=== PATIENT | female | born 2000 | race African-American/Black ===

== ENCOUNTER 2022-01-03 14:13 | Emergency (ER) | payer SELFPAY ==
[~2022-01-03] VITALS: Ht 160 cm; Wt 54.0 kg
--- NOTE | 2022-01-03 15:15 | ED GU-Female ---
General Chief Complaint: - Reproductive Stated Complaint: STD CHECK Source: patient Exam Limitations: no limitations History of Present Illness Date Seen by Provider: Jan 03, 2022 Time Seen by Provider: 15:08 Initial Comments Is a 21-year-old female who presented to the ER via POV with concerns for STI. States she is with a male partner who is positive for Trich and she would like to have STI testing. Physical Exam Vital Signs Capillary Refill : Height, Weight, BMI Height: '" Weight: lbs. oz. kg; BMI Method: Progress/Results/Core Measures Suspected Sepsis SIRS Temperature: Pulse: Respiratory Rate: Blood Pressure / Mean: Results/Orders Lab Results Laboratory Tests Test 01/03/22 15:03 Range/Units Urine Color YELLOW Urine Clarity CLEAR Urine pH 6.0 5-9 Urine Specific Nucla >=1.030 1.016-1.022 Urine Protein TRACE H NEGATIVE Urine Glucose (UA) NEGATIVE NEGATIVE Urine Ketones NEGATIVE NEGATIVE Urine Nitrite NEGATIVE NEGATIVE Urine Bilirubin NEGATIVE NEGATIVE Urine Urobilinogen 1.0 < = 1.0 MG/DL Urine Leukocyte Esterase 3+ H NEGATIVE Urine RBC (Auto) TRACE-I H NEGATIVE Urine RBC 0-2 /HPF Urine WBC >100 H /HPF Urine Squamous Epithelial Cells 2-5 /HPF Urine Crystals NONE /LPF Urine Bacteria MODERATE H /HPF Urine Casts PRESENT /LPF Urine Hyaline Casts 2-5 H /LPF Urine Mucus MODERATE H /LPF Urine Culture Indicated YES Micro Results Microbiology 01/03/22 Genital Culture, Resulted Pending 01/03/22 JAMES Preparation - Final, Resulted 01/03/22 Wet Prep - Final, Resulted My Orders Orders - ANA ELMORE APRN Wet Prep (01/03/22 14:17) Neisseria Gonorrhea Swab (01/03/22 14:17) Genital Culture (01/03/22 14:17) Urine Bedside (01/03/22 14:17) James Prep (01/03/22 14:17) Ua Culture If Indicated (01/03/22 14:17) Chlamydia Trachomatis Swab (01/03/22 14:17) Urine Culture (01/03/22 15:03) Vital Signs/I&O Capillary Refill : Departure Impression Primary Impression: Trichomoniasis Disposition: 01 HOME, SELF-CARE Condition: Improved Departure-Patient Inst. Decision time for Depature: 15:53 Referrals: NO,LOCAL PHYSICIAN (PCP/Family) Primary Care Physician Patient Instructions: STD Prevention, Trichomoniasis (DC) Add. Discharge Instructions: Plan: 1. We will notify you via phone if your remaining test are positive. You were treated in the ER today. 2. Take metronidazole by mouth twice a day for 7 days. 3. Use protection with sexual intercourse to reduce risk of sexually transmitted infections. 4. Return for any new, concerning, or worsening symptoms. All discharge instructions reviewed with patient and/or family. Voiced understanding. Scripts Metronidazole (Metronidazole) 500 Mg Tablet 500 MG PO BID for 7 Days, #14 TAB 0 Refills Prov: ANA ELMORE CASINO SHIFT MANAGER 01/03/22 ANA ELMORE CASINO SHIFT MANAGER Jan 03, 2022 15:15
[2022-01-03 15:28] LABS: BILIRUBIN,URINE NEGATIVE (NEGATIVE); CLARITY,URINE CLEAR; COLOR,URINE YELLOW; GLUCOSE, URINE (UA) NEGATIVE (NEGATIVE); KETONES,URINE NEGATIVE (NEGATIVE); LEUKOCYTE ESTERASE ,URINE 3+ (NEGATIVE); NITRITE,URINE NEGATIVE (NEGATIVE); PROTEIN,URINE TRACE (NEGATIVE)
[2022-01-03 15:42] LABS: RBC,URINE 0-2 /HPF
[2022-01-03 15:43] LABS: BACTERIA,URINE MODERATE /HPF; WBC,URINE >100 /HPF
[2022-01-03] MEDS ORDERED: METR-145 PO (15:59)
[2022-01-03] MEDS ORDERED: LIDOCAINE 1% INJ 20 ML VIAL INJ ONE (16:15)
[2022-01-03] MEDS ORDERED: cefTRIAXone 250 MG/2.5 ML ML IM ONE (16:15)
[2022-01-03] MEDS ORDERED: AZITHROMYCIN 250 MG TAB (ZITHROMAX) PO ONE (16:15)
[2022-01-03 16:34] VITALS: BP 117/79
== END 2022-01-03 16:34 | disposition home or self-care (01) ==
LOC: ER 14:16
DX: A59.9 Trichomoniasis, unspecified (principal); Z28.310 Unvaccinated for COVID-19
CPT/HCPCS: 36415; 81000; 84703; 87070; 87088; 87205; 87210; 87491; 87591; 99284